=== PATIENT | female | born 1960 | race Caucasian/White ===

== ENCOUNTER → 2016-10-28 | Outpatient (CLI) | payer OTHER | END | disposition home or self-care (01) | LOC: C.LABSPEC 18:05 | PROVIDERS: ATTEND Urology | DX: N39.0 Urinary tract infection, site not specified (principal) ==

== ENCOUNTER → 2016-11-11 | Outpatient (CLI) | payer OTHER ==
--- NOTE | 2016-11-11 13:59 | DIAGNOSTIC IMAGING REPORT ---
ABDOMEN AND PELVIS CT WITHOUT CONTRAST CT DOSE: 1728.38 mGy.cm HISTORY: M54.5 Low back pain TECHNIQUE: Multiaxial CT images of the abdomen and pelvis were performed without the use of intravenous and oral contrast according to the standard department stone protocol. COMPARISON STUDY: None. FINDINGS: The lung bases are clear. Old moderate anterior wedge-shaped compression deformity at T12. No acute fractures within the lumbar spine. 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 This measures 2.1 cm. Surgical clips within the left upper quadrant. 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 However, there are multiple lobular areas of splenic tissue remaining within the left upper quadrant suggestive of splenosis. Hepatic steatosis. No hepatic masses identified. The unenhanced gallbladder, pancreas, and adrenal glands are unremarkable. No renal stones or hydronephrosis. The ureters are normal in course and caliber. Gas within the bladder lumen. No significant bladder wall thickening. The uterus and bilateral adnexa are within normal limits. Suboptimal evaluation for bowel pathology due to the lack of intravenous and oral contrast. However, there is no definite bowel wall thickening or obstruction. Moderate well-formed stool within the colon. Small fat-containing midline ventral hernias. Subcutaneous fat stranding within the anterior abdominal wall may be due to medication injection. No evidence for acute appendicitis. Hyperdense material within the distal appendix may be due to stool or old barium. IMPRESSION: 1. No renal stones or hydronephrosis. 2. Gas within the bladder lumen. This may be due to prior catheterization. Clinical correlation recommended. 3. No definite bowel wall thickening or obstruction. 4. Additional findings as described above. Electronically signed by: Jose Conrad M.D. 11/11/2016 1:57 PM Dictated Date/Time: 11/11/2016 1:45 PM
== END | disposition home or self-care (01) ==
LOC: C.CTS 13:22
PROVIDERS: ATTEND Nurse Practitioner Adult Health
DX: M54.5 Low back pain (principal)